=== PATIENT | male | born 1955 | race Caucasian/White ===

== ENCOUNTER → 2020-12-01 09:52 | Outpatient (CLI) | payer MEDICARE, OTHER ==
--- NOTE | 2020-12-02 14:10 | ST ---
PATIENT:JOSE ANTONIO RODRIGUEZ MEDICAL RECORD: [id number] SEX: M LOCATION:[facility] ORDER #: ADMISSION DATE: 12/01/20 AGE OF PATIENT: 65 REFERRING PHYSICIAN: INTERPRETING PHYSICIAN: HERB GIBSON MD DATE OF SERVICE: 12/01/2020 NUCLEAR STRESS TEST GATED: Gated is normal with normal wall motion. Normal EF 62%. SPECT IMAGING: SPECT imaging was performed. 1. SHORT AXIS VIEW: Short axis view shows a fixed defect along the inferior base that improved with stress. 2. HORIZONTAL AXIS VIEW: This is confirmed with a horizontal axis with a fixed inferior basilar and in fact it usually improves with stress. 3. VERTICAL AXIS: Vertical axis shows good uptake along the lateral septum. FINAL IMPRESSION: 1. Normal gated. Normal wall motion, EF 62%. 2. Mildly abnormal SPECT imaging with a fixed inferior basilar defect in previous test. FINAL RECOMMENDATION: This scans is felt for low risk for any myocardial ischemia, inferior defect does improve with stress which may represent tissue attenuation. LV function remains normal. Continue medical management and risk factor modifications recommended. TRANSINT:[id number] Voice Confirmation ID: [id number] DOCUMENT ID: [id number] HERB GIBSON MD at 1410 CC: [id number] DICTATION DATE: 12/01/20 1636 CUSTOMER SUPPORT COORDINATOR: 12/02/20 0827 [facility] CLI 12/01/20 [address] [place] [address]
== END | disposition home or self-care (01) ==
LOC: D.HCCECHO 09:52 → D.HCCARDIO 11:00
PROVIDERS: ATTEND Internal Medicine Interventional Cardiology
DX: R06.09 Other forms of dyspnea (principal)